=== PATIENT | male | born 2000 | race Asian ===

== ENCOUNTER 2022-09-05 17:09 | Observation (INO) ==
[2022-09-05] MEDS ORDERED: ONDANSETRON INJ 2 MG/ML 2 ML VIAL ONE ×2 (17:19→21:15)
[2022-09-05] MEDS ORDERED: SODIUM CHLORIDE 0.9% 500 ML IV STA (17:20)
[2022-09-05] MEDS ORDERED: ONDANSETRON INJ 2 MG/ML 2 ML VIAL IV STA (17:20)
[2022-09-05 17:55] LABS: Alanine Aminotransferase 38 U/L (7-52); Albumin Globulin Ratio 1.7 (0.9-2); Albumin Level 4.9 gm/dl (3.4-5.0); Alkaline Phosphatase 45 U/L (34-104); Anion Gap 6 (3-11); Aspartate Aminotransferase 19 U/L (13-39); BUN Creatinine Ratio 14.7 (10-20); Basophils # (auto) 0.03 K/uL (0-0.2); Basophils % (auto) 0.2 %; Blood Urea Nitrogen 15 mg/dl (6-23); Carbon Dioxide 30 mmol/L (21-32); Chloride 102 mmol/L (98-107); Eosinophils # (auto) 0.08 K/uL (0-0.50); Eosinophils % (auto) 0.6 %; Est GFR (African American) 122.1 ml/min; Est GFR (Non-African American) 105.3 ml/min; Globulin 2.9 gm/dl (2.5-4.0); Glucose 108 mg/dl (70-99(Fasting)); Hematocrit (blood only) 47.3 % (42.0-52.0); Hemoglobin 16.5 g/dl (14.0-18.0); Immature Granulocytes # (auto) 0.04 K/uL (0.01-0.20); Immature Granulocytes % (auto) 0.3 %; Lipase 14 U/L (11-82); Lymphocytes # (auto) 2.52 K/uL (1.2-3.4); Lymphocytes % (auto) 19.9 %; Mean Corpuscular Hemoglobin 27.5 pg (25.0-34.0); Mean Corpuscular Hgb Conc 34.9 g/dL (32.0-36.0); Mean Platelet Volume 9.5 fL (9.4-12.4); Monocytes # (auto) 0.76 K/uL (0.11-0.59); Neutrophils # (auto) 9.22 K/uL (1.40-6.50); Platelet Count 219 K/uL (130-400); Potassium 4.1 mmol/L (3.5-5.1); RDW Coefficient of Variation 12.7 % (11.5-14.5); RDW Standard Deviation 35.9 fL (36.4-46.3); Red Blood Count 5.99 M/uL (4.70-6.10); Sodium 138 mmol/L (136-145); Total Protein 7.8 gm/dl (6.0-8.3); White Blood Count 12.65 K/ul (4.8-10.8)
[2022-09-05] MEDS ORDERED: KETOROLAC TROMETHAMINE 15 MG/ML VIAL IV STA (18:14)
[2022-09-05] MEDS ORDERED: SODIUM CHLORIDE 0.9% 1000ML 500 ML IV ONE (18:14)
[2022-09-05] MEDS ORDERED: OPTIRAY 350 100ml IV ONE (19:16)
[2022-09-05] MEDS ORDERED: metroNIDAZOLE 500 MG/100 ML BAG IV STA (19:55)
[2022-09-05] MEDS ORDERED: cefTRIAXone SODIUM 1 GM ADDVIAL IV STA (19:55)
--- NOTE | 2022-09-05 19:55 | CT Scan Report ---
Exam(s): CT ABDOMEN + PELVIS With Contrast IV Amt: 84 m l optiray EXAM: CT Abdomen and Pelvis With Intravenous Contrast CLINICAL HISTORY: Reason for exam: rlq pain. TECHNIQUE: Axial computed tomography images of the abdomen and pelvis with intravenous contrast. CTDI is 6.03 mGy and DLP is 335.08 mGy-cm. Automated exposure control was utilized for the study. A dose lowering technique was utilized adhering to the principles of ALARA. CONTRAST: Patient received 84 m l optiray of IV contrast COMPARISON: No relevant prior studies available. FINDINGS: Lung bases: Unremarkable. No mass. No consolidation. ABDOMEN: Liver: Unremarkable. No mass. Gallbladder and bile ducts: Unremarkable. No calcified stones. No ductal dilation. Pancreas: Unremarkable. No mass. No ductal dilation. Spleen: Unremarkable. No splenomegaly. Adrenals: Unremarkable. No mass. Kidneys and ureters: Unremarkable. No solid mass. No hydronephrosis. Stomach and bowel: Mild wall thickening of the transverse colon, correlate for colitis versus under distention. PELVIS: Appendix: Positive for appendicitis, consisting of a distended appendix measuring up to 11 mm with wall thickening and mild periappendiceal fat stranding. No perforation or abscess. Bladder: Unremarkable. No mass. Reproductive: Unremarkable as visualized. ABDOMEN and PELVIS: Intraperitoneal space: Unremarkable. No free air. No significant fluid collection. Bones/joints: No acute fracture. No dislocation. Soft tissues: Unremarkable. Vasculature: Unremarkable. No abdominal aortic aneurysm. Lymph nodes: Unremarkable. No enlarged lymph nodes. IMPRESSION: Positive for appendicitis, consisting of a distended appendix measuring up to 11 mm with wall thickening and mild periappendiceal fat stranding. No perforation or abscess. Mild wall thickening of the transverse colon, correlate for colitis versus under distention. Communications: Verify Receipt Electronically signed by: Ousmane Majano MD 09/05/22 19:53 PM
[2022-09-05] MEDS ORDERED: cefTRIAXone SODIUM 1,000 MG Advantage IV ONE (20:00)
--- NOTE | 2022-09-05 20:40 | History & Physical Report ---
Date of Service September 05, 2022 Assessment & Plan (1) Appendicitis: Plan: Due to the patient's clinical presentation and findings on imaging we will admit him to the hospital proceeding as follows: Analgesia will be provided Antiemetics we provided N.p.o. status will be implemented IV fluids will be provided for hydration We will continue antibiotics. The treating emergency room physician has initiated Rocephin and Flagyl which we will continue A COVID test has been sent and we will follow for the results of this We have tentatively planned to perform an appendectomy with Dr. Sales. I have outlined the risks, benefits, and alternatives with the patient and he wishes to proceed. I have also outlined the expected postoperative course. We are currently working on arranging availability of overtime so the timing of surgery is yet to be determined Additional recommendations be forthcoming based on his clinical course as it unfolds, operative findings, and his postoperative recovery We will use SCDs for DVT prevention, no chemical means due to planned surgery The patient will be a level 1 full code History of Present Illness Chief Complaint: Abdominal pain Primary Care Provider: Rust This is a 22-year-old male who presented to the emergency department secondary to abdominal pain. Patient notes that he was in his usual state of health feeling fine until this afternoon when he developed some lower abdominal discomfort. He did have associated nausea and vomiting but denied any fevers, shakes, or chills. Since his pain began he denies any provocative factors. He does note the pain was palliated by medicines administered in the emergency department. He notes his last oral intake was approximately 2:30 PM today which was solid food. He denies any prior abdominal surgeries. Concerning past medical history he denies taking any medicines or having any medical problems Concerning past surgical history he denies previous surgeries He denies any medicine allergies Concerning social history he is a non-smoker Concerning family history there is no family history of coronary artery disease Since arrival to the emergency department the patient has had labs and imaging which I independent reviewed. CT scan abdomen pelvis showed that patient had a dilated and distended appendix measuring 11 mm with wall thickening and mild periappendiceal fat stranding. There is no evidence of perforation or abscess. There is also some mild wall thickening of the transverse colon which was felt to either represent colitis or under distention. Labs include a CBC were white blood cell count was elevated 12.6. Hemoglobin and hematocrit were both normal and patient's platelet count was normal. Chemistry profile showed sodium, potassium, BUN, and creatinine were normal. There is no elevation of patient's LFTs or lipase. A COVID test is pending. At the time of my interview the patient was resting comfortably in bed he was in no distress. Allergies Allergy/AdvReac Type Severity Reaction Status Date / Time No Known Allergies Allergy Unverified 09/05/22 20:25 Home Medications Medication Instructions Recorded Confirmed Type No Known Home Medications 09/05/22 09/05/22 History Past Med/Surg History Social History Smoking Status: Never smoker Preferred Language: Angolan Review of Systems Constitutional: no fever and no chills Ear, Nose, Mouth, Throat: no hearing loss Respiratory: no cough and no dyspnea Cardiovascular: no chest pain Gastrointestinal: as per Subjective / HPI Genitourinary: no dysuria Musculoskeletal: no back pain Integumentary: no rash Neurologic: no localized weakness Physical Exam Constitutional: WD/WN, vitals as above Eyes: no conjunctival abnormality ENMT: Ears: no hearing impairment and no external ear abnormality Mouth: no oropharynx abnormality Neck: trachea midline Respiratory: normal respiratory effort, lungs clear to auscultation Cardiovascular: Rate/Rhythm: regular rate, regular rhythm and + tachycardic Gastrointestinal (Abdomen): Abdomen is soft and nonrigid. It is nondistended. There is no rebound tenderness or guarding but patient did have pain with palpation in the lower quadrants (left lower quadrant and right lower quadrant) with deep palpation Musculoskeletal: No calf tenderness Skin: no rashes Neurologic: moves all extremities Psychiatric: A+Ox3, euthymic affect Results & Data Results & Data Vital Signs (Past 12 Hours) Vital Signs Temp Pulse Pulse Resp BP BP Pulse Ox 09/05/22 20:00 112 H 20 133/82 100 09/05/22 17:11 36.8 C 75 18 133/82 100 O2 Del Method 09/05/22 20:00 Room Air 09/05/22 17:11 Room Air Supervising Physician Co-Signing Physician Notes pnt s&e, agree with above. abd pain, worse in rlq. afvss. ttp at [facility] wbc 12. ct personally reviewed and interpreted, agree with non perforated appendicitis. plan for laparoscopic appendectomy risks reviewed to include bleeding, infection, open surgery, need for future surgery, damage to surrounding structures, abscess, and risks of anesthesia likely d/c tomorrow am pre op abx. PG Care Time/CCT Total # of Minutes Spent Total Time Spent with Patient: Total time spent is greater than 50% in coordination of care (as documented) at patient's floor/unit and/or counseling patient: Coding Level of Care Code 40551 INT INP/OBS CARE 75MIN Diagnoses Appendicitis K37
[2022-09-05] MEDS ORDERED: ACETAMINOPHEN 1,000 MG/100 ML VIAL IV PRN (20:41)
[2022-09-05] MEDS ORDERED: ONDANSETRON INJ 2 MG/ML 2 ML VIAL IV PRN ×2 (20:41→21:26)
[2022-09-05] MEDS ORDERED: MoRPHine SULFATE 4 MG/ML 1 ML CARP\\VIAL IV PRN (20:41)
[2022-09-05] MEDS ORDERED: SUCCINYLCHOLINE CHLORIDE 20 MG/ML 10 ML VIAL IV ONE (21:15)
[2022-09-05] MEDS ORDERED: DEXAMETHASONE SOD INJ 4 MG/ML VIAL ONE (21:15)
[2022-09-05] MEDS ORDERED: fentaNYL citrate PF 100 MCG/2 ML VIAL ONE ×2 (21:15→21:16)
[2022-09-05] MEDS ORDERED: PROPOFOL IV EMULSION 10 MG/ML 20 ML VIAL IV ONE (21:15)
[2022-09-05] MEDS ORDERED: LIDOCAINE 2% MPF LOCAL 5 ML VIAL ONE (21:15)
[2022-09-05] MEDS ORDERED: MIDAZOLAM HCL 1 MG/ML 2ML VIAL ONE (21:15)
[2022-09-05] MEDS ORDERED: ROCURONIUM BROMIDE 10 MG/ML 5 ML VIAL IV ONE (21:15)
[2022-09-05] MEDS ORDERED: BUPIVACAINE 0.5 % 5 MG/1 ML MPF 30ML VIAL ONE (21:20)
[2022-09-05] MEDS ORDERED: PROMETHAZINE HCL 6.25 MG in SODIUM CHLORIDE 0.9% 50 ML IV PRN (21:26)
[2022-09-05] MEDS ORDERED: HYDROmorphone INJ 1 MG/ML SYRINGE IV PRN (21:26)
[2022-09-05] MEDS ORDERED: ATROPINE SULFATE 0.1 MG/ML 10ML SYR IV PRN (21:26)
[2022-09-05] MEDS ORDERED: ePHEDrine sulfate 50 MG/ML AMP IV PRN (21:26)
[2022-09-05] MEDS ORDERED: ACETAMINOPHEN 1,000 MG/100 ML VIAL IV STA (21:26)
[2022-09-05] MEDS ORDERED: fentaNYL citrate PF 100 MCG/2 ML VIAL IV PRN (21:26)
--- NOTE | 2022-09-05 21:32 | Anesthesiology Consultation ---
Date of Service September 05, 2022 Assessment & Plan (1) Encounter for pre-operative examination: Chart Review Chart Review: Acceptable Risk for Surgery and Patient NOT seen in Pre Admission Testing Consults Requested none History Surgery Operation Date: 09/05/22 20:55 Proposed Procedures p Laparoscopic Appendectomy, possible open - Nico Sales, , FACS Height/Weight Weight: 73.5 kg Allergies Allergy/AdvReac Type Severity Reaction Status Date / Time No Known Allergies Allergy Unverified 09/05/22 20:25 Medications Home Medications Medication Instructions Recorded Confirmed Last Taken No Known Home Medications 09/05/22 09/05/22 Unknown Past Medical History healthy Exercise / Class Metabolic Activity II 4-5 Yardwork/Stairs/Walk up hill Past Surgical History no prior surgeries Past Anesthesia History No Hx of Anesthesia Complications and No Family Hx of Anesthesia Complications History of PONV No Hx of PONV and No Hx of Motion Sickness Social History Smoking Status: Never smoker Physical Exam Vital Signs Last Vital Signs Temp 36.8 C 09/05/22 17:11 Pulse 112 H 09/05/22 20:00 Resp 20 09/05/22 20:00 BP 133/82 09/05/22 20:00 Pulse Ox 100 09/05/22 20:00 O2 Del Method Room Air 09/05/22 20:00 Testing Laboratory Results 09/05/22 17:17 09/05/22 17:17
[2022-09-05] MEDS ORDERED: GLYCOPYRROLATE 0.2 MG/ML VIAL ONE (22:26)
[2022-09-05] MEDS ORDERED: NEOSTIGMINE METHYLSULFATE 1 MG/ML 10ML VIAL ONE (22:26)
--- NOTE | 2022-09-05 22:42 | Operative Report ---
PG Post Operative Report Pre & Post Diagnosis Operation Date: 09/05/22 20:55 Pre-Op Diagnosis: Acute appendicitis Post-Op Diagnosis: Acute appendicitis I identified the patient and participated in the time-out.: Yes Procedure Operation Date: 09/05/22 20:55 Actual Procedures p Laparoscopic Appendectomy, possible open - Nico Sales DO, FACS Surgeon Nico Sales DO, FACS Bulk Filler Joshua Barber Estimated Blood Loss 5 Findings Consistent with Post-Op Diagnosis Nonperforated acute appendicitis Specimens Appendix Anesthesia Type General Complications none Disposition Accompanied Patient To Recovery: No Disposition: Recovery Room Indications 22-year-old male presented with signs symptoms of acute appendicitis confirmed by CT. Plan for laparoscopic appendectomy. The risks of the procedure were discussed, all questions were answered, and the patient agreed to proceed with surgery as planned. Description of Procedure The patient was properly identified, consented, and taken to the operating room where he was placed in the supine position. General endotracheal anesthesia was induced. SCDs and a safety belt were placed. Preoperative antibiotics were administered. A Patel catheter was not placed. The patient's abdomen was prepped and draped in the standard sterile fashion. Surgical timeout was performed and all parties were in agreement that this was the correct patient and procedure to be performed and we continued as planned. A curvilinear infraumbilical incision was made with electrocautery and deepened down to the fascia with blunt dissection. The base of the umbilicus was grasped with a Michelle and elevated towards the ceiling. An incision was made in the midline fascia with a knife and entry into the peritoneum was confirmed. Stay suture of 0 Vicryl was placed and a Brenner trocar was inserted. The abdomen was insufflated with carbon dioxide which the patient tolerated without incident. The laparoscope was inserted and no damage from initial trocar placement was noted, no gross abnormalities were noted within the 4 quadrants the abdomen. 5 mm ports were then placed in the left lower quadrant with care not to damage the epigastric vessels, and in the suprapubic midline with care not to damage the bladder. The patient was placed in Trendelenburg position and rotated towards the left. The small bowel was swept away from the right lower quadrant. The cecum was grasped with an atraumatic grasper exposing the appendix. The appendix was moderately inflamed and there was no evidence of perforation. There was minimal fluid in the pelvis. A window was created between the base of the appendix and the mesoappendix. A washington loaded endoscopic stapler was then used to divide the appendix at its base. A washington load was then used to divide the mesoappendix. Hemostasis was good. The appendix was placed in an Endo Catch bag and removed through the umbilical port site. The right lower quadrant and pelvis was irrigated and hemostasis was found to be good. 5 mm trochars were removed under direct visualization and the abdomen was allowed to collapse. The umbilical port site fascia was closed with 0 Vicryl suture. The wound was irrigated, and the skin of all ports was closed with 4-0 Monocryl subcuticular sutures. Dermabond was placed over the wounds. The patient was extubated in the operating room and taken to the PACU where he recovered without apparent incident. All sponge, instrument and needle counts were correct at the conclusion of the procedure. The patient tolerated the procedure well. The physician's special education assistant was present and scrubbed for the entire the case. He is critical in positioning the patient, prepping and draping, retraction and exposure, driving the laparoscope, removal of the appendix, closure the incisions, placement of the dressings. I attest to the content of the Intraoperative Record and any orders documented therein. Any exceptions are noted below.
--- NOTE | 2022-09-05 23:19 | Anesthesiology Progress Note ---
Date of Service September 05, 2022 Anesthesia Post Procedure Vital Signs Vital Signs: Temp Pulse Pulse Resp BP BP BP 09/05/22 23:10 71 22 118/78 09/05/22 23:00 36.5 C 81 20 117/76 09/05/22 20:00 112 H 20 133/82 09/05/22 17:11 36.8 C 75 18 133/82 Pulse Ox O2 Del Method O2 Flow Rate 09/05/22 23:10 100 Oxymask 5 09/05/22 23:00 100 Oxymask 10 09/05/22 20:00 100 Room Air 09/05/22 17:11 100 Room Air Pain Intensity Abdomen: Pain Intensity: 0 Transfer of Care Handoff Completed per policy Notes Mental Status: alert / awake / arousable and participated in evaluation Patient Amnestic to Procedure: Yes Nausea / Vomiting: adequately controlled Pain: adequately controlled Airway Patency, RR, SpO2: stable & adequate BP & HR: stable & adequate Hydration State: stable & adequate Anesthetic Complications: no major complications apparent and Pt Satisfied with anesthetic care
--- NOTE | 2022-09-06 00:14 | Emergency Department Note ---
History of Present Illness General Chief Complaint: Abdominal Pain Stated Complaint: ABDOMINAL PAIN Time Seen by Provider: 09/05/22 17:59 History of Present Illness Provider Complaint: abdominal pain Onset (ago): 5 hour(s) Pain Consistency: constant Location: diffuse Severity: moderate Maximum Pain Intensity: 6 Current Pain Intensity: 6 Quality: + stabbing, + aching, + sharp and + dull Relieved By: + nothing Exacerbated By: + nothing Context: no foreign travel, no possible food poisoning, no sick contacts, no recent antibiotic use, no recent surgery/procedure or no recent injury Associated Symptoms: + nausea and + vomiting; no fever, no chills, no constipation, no dysuria, no hematemesis, no hematochezia, no melena, no hematuria, no syncope, no headache, no chest pain and no breathing difficulty Home Medications Medication Instructions Recorded Confirmed Type No Known Home Medications 09/05/22 09/05/22 History Allergies Allergy/AdvReac Type Severity Reaction Status Date / Time No Known Allergies Allergy Unverified 09/05/22 20:25 Past Med/Surg History Medical History No pertinent family history No pertinent past medical history Surgical History No pertinent past surgical history Social History Smoking Status: Never smoker Preferred Language: Latvian Physical Exam Vital Signs: Vital Signs - 24 hr 09/05/22 17:11 09/05/22 20:00 09/05/22 23:00 Temperature 36.8 C 36.5 C Temperature Source Temporal Artery Sc an Oral Pulse Rate 75 Pulse Rate [Apical ] 112 H 81 Pulse Rhythm [Apic al] Regular Pulse Strength [Ap ical] Normal Respiratory Rate 18 20 20 Respiratory Effort / Characteristics Non-Labored Non-Labored Respiratory Depth Normal Normal Respiratory Patter n Regular Blood Pressure 133/82 Blood Pressure [Le ft Arm] 117/76 Blood Pressure [Ri ght Arm] 133/82 Blood Pressure Arely n 99 Blood Pressure Arely n [Left Arm] 89 Blood Pressure Arely n [Right Arm] 99 Blood Pressure Pos ition Sitting Blood Pressure Pos ition [Left Arm] Lying Blood Pressure Pos ition [Right Arm] Lying Pulse Oximetry 100 100 100 Oxygen Delivery Me thod Room Air Room Air Oxymask Oxygen Flow Rate 10 Sepsis Recent Feve r Within 48 Hours No Sepsis New/Unexpla ined Change in Men vitaly Status No Sepsis Action Take n by Nursing No Action Required 09/05/22 23:10 09/05/22 23:20 09/05/22 23:30 Temperature Temperature Source Pulse Rate Pulse Rate [Apical ] 71 74 74 Pulse Rhythm [Apic al] Pulse Strength [Ap ical] Respiratory Rate 22 24 22 Respiratory Effort / Characteristics Non-Labored Non-Labored Non-Labored Respiratory Depth Normal Normal Normal Respiratory Patter n Regular Regular Regular Blood Pressure Blood Pressure [Le ft Arm] 118/78 116/73 113/85 Blood Pressure [Ri ght Arm] Blood Pressure Arely n Blood Pressure Arely n [Left Arm] 91 87 94 Blood Pressure Arely n [Right Arm] Blood Pressure Pos ition Blood Pressure Pos ition [Left Arm] Blood Pressure Pos ition [Right Arm] Pulse Oximetry 100 99 99 Oxygen Delivery Me thod Oxymask Room Air Room Air Oxygen Flow Rate 5 Sepsis Recent Feve r Within 48 Hours Sepsis New/Unexpla ined Change in Men vitaly Status Sepsis Action Take n by Nursing 09/05/22 23:40 09/05/22 23:51 Temperature Temperature Source Pulse Rate Pulse Rate [Apical ] 77 80 Pulse Rhythm [Apic al] Pulse Strength [Ap ical] Respiratory Rate 24 22 Respiratory Effort / Characteristics Non-Labored Non-Labored Respiratory Depth Normal Normal Respiratory Patter n Regular Regular Blood Pressure Blood Pressure [Le ft Arm] 114/81 114/77 Blood Pressure [Ri ght Arm] Blood Pressure Arely n Blood Pressure Arely n [Left Arm] 92 89 Blood Pressure Arely n [Right Arm] Blood Pressure Pos ition Blood Pressure Pos ition [Left Arm] Blood Pressure Pos ition [Right Arm] Pulse Oximetry 99 99 Oxygen Delivery Me thod Room Air Room Air Oxygen Flow Rate Sepsis Recent Feve r Within 48 Hours Sepsis New/Unexpla ined Change in Men vitaly Status Sepsis Action Take n by Nursing Physical Exam: Physical Exam GENERAL: He is oriented to person, place, and time. He appears well-developed and well-nourished. He does not appear distressed. CV: Normal rate, regular rhythm, normal heart sounds and intact distal pulses. There is no peripheral edema. Palpable radial pulses bue. PULM/CHEST: Effort normal and breath sounds normal. No respiratory distress. No stridor. He has no wheezes. He has no rales. - Chest Wall: He exhibits no tenderness. ABD: The abdomen is soft. He has no distension. No mass is present. There is tenderness to palpation of the right lower quadrant. There is no rebound, no guarding, no Cooney's sign. MUSC/SKEL: Normal range of motion. There is no peripheral edema, tenderness or deformity. LYMPH: No cervical adenopathy. NEURO: Motor and sensation grossly intact. SKIN: Skin is warm and dry. He is not diaphoretic. PSYCH: He has a normal mood and affect. Behavior is normal. Judgment and thought content normal. Course Course 1758: The patient was evaluated in room B10. A complete history and physical exam was performed Cardiac monitoring: An order was placed for continuous cardiac monitoring. The monitor shows a rate of 80 with sinus rhythm interpreted by wv 2000: Vital signs stable. Imaging shows appendicitis. Patient be treated with antibiotics and general surgery will be contacted for evaluation. Administered Medications Ondansetron HCl (Ondansetron Inj 2 Mg/Ml 2 Ml Vial) 4 mg IV ONCE PRN PRN Reason: PACU Use Only-Nausea/Vomiting Stop: 09/06/22 05:26 Last Admin: 09/05/22 23:41 Dose: 4 mg Documented By: [facility] Discontinued Medications Bupivacaine HCl (Bupivacaine 0.5 % 5 Mg/1 Ml Mpf 30ml Vial) Confirm Administered Dose 30 ml .ROUTE .STK-MED ONE Stop: 09/05/22 21:21 Last Admin: 09/05/22 22:31 Dose: 30 ml Documented By: JESSEE Sodium Chloride (Nss) 500 mls @ 999 mls/hr IV .Q31M STA Stop: 09/05/22 17:50 Last Infusion: 09/05/22 19:16 Dose: 0 mls/hr Documented By: Admin: 09/05/22 17:22 Dose: 999 mls/hr Documented By: VILMA Sodium Chloride (Nss 1000ml) 500 mls @ 999 mls/hr IV .Q31M ONE Stop: 09/05/22 18:44 Last Infusion: 09/05/22 19:15 Dose: 0 mls/hr Documented By: Admin: 09/05/22 18:33 Dose: 999 mls/hr Documented By: RSL Metronidazole (Flagyl) 500 mg in 100 mls @ 100 mls/hr IV NOW STA Stop: 09/05/22 20:54 Last Admin: 09/05/22 21:10 Dose: 100 mls/hr Documented By: AQUILES Ceftriaxone Sodium 1,000 mg/ (Dextrose) 50 mls @ 100 mls/hr IV NOW ONE Stop: 09/05/22 20:29 Last Infusion: 09/05/22 20:54 Dose: 0 mls/hr Documented By: Admin: 09/05/22 20:25 Dose: 100 mls/hr Documented By: DEVEN Acetaminophen (Ofirmev) 1,000 mg in 100 mls @ 400 mls/hr IV NOW STA Stop: 09/05/22 21:40 Last Admin: 09/05/22 23:41 Dose: 400 mls/hr Documented By: NATACHA Ioversol (Optiray 350 100ml) 84 ml IV ONCE ONE Stop: 09/05/22 19:17 Last Admin: 09/05/22 19:17 Dose: 84 ml Documented By: YESSI Ketorolac Tromethamine (Ketorolac Tromethamine 15 Mg/Ml Vial) 15 mg IV NOW STA Stop: 09/05/22 18:15 Last Admin: 09/05/22 18:33 Dose: 15 mg Documented By: AQUILES Ondansetron HCl (Ondansetron Inj 2 Mg/Ml 2 Ml Vial) Confirm Administered Dose 4 mg .ROUTE .STK-MED ONE Stop: 09/05/22 17:20 Last Admin: 09/05/22 17:22 Dose: Not Given Documented By: VILMA Ondansetron HCl (Ondansetron Inj 2 Mg/Ml 2 Ml Vial) 4 mg IV NOW STA Stop: 09/05/22 17:21 Last Admin: 09/05/22 17:22 Dose: 4 mg Documented By: VILMA Medical Decision Making Laboratory Data Attestation: I reviewed the patient's lab results. 09/05/22 17:17 09/05/22 17:17 Lab Results 09/05/22 09/05/22 09/05/22 Range/Units 17:17 17:17 20:05 WBC 12.65 H (4.8-10.8) K/ul RBC 5.99 (4.70-6.10) M/uL Hgb 16.5 (14.0-18.0) g/dl Hct 47.3 (42.0-52.0) % MCV 79.0 L (80.0-100.0) fL MCH 27.5 (25.0-34.0) pg MCHC 34.9 (32.0-36.0) g/dL RDW Std Deviation 35.9 L (36.4-46.3) fL RDW Coeff of Twin 12.7 (11.5-14.5) % Plt Count 219 (130-400) K/uL MPV 9.5 (9.4-12.4) fL Immature Gran % (Auto) 0.3 % Neut % (Auto) 73.0 % Lymph % (Auto) 19.9 % [place] % (Auto) 6.0 % Eos % (Auto) 0.6 % Baso % (Auto) 0.2 % Neut # (Auto) 9.22 H (1.40-6.50) K/uL Lymph # (Auto) 2.52 (1.2-3.4) K/uL [place] # (Auto) 0.76 H (0.11-0.59) K/uL Eos # (Auto) 0.08 (0-0.50) K/uL Baso # (Auto) 0.03 (0-0.2) K/uL Immature Gran # (Auto) 0.04 (0.01-0.20) K/uL Sodium 138 (136-145) mmol/L Potassium 4.1 (3.5-5.1) mmol/L Chloride 102 (98-107) mmol/L Carbon Dioxide 30 (21-32) mmol/L Anion Gap 6 (3-11) BUN 15 (6-23) mg/dl Creatinine 1.02 (0.6-1.4) mg/dl Est Cr Clr Drug Dosing Not Reportable Est GFR ( Amer) 122.1 ml/min Est GFR (Non-Af Amer) 105.3 ml/min BUN/Creatinine Ratio 14.7 (10-20) Glucose 108 H (70-99(Fasting)) mg/dl Calcium 10.0 (8.6-10.3) mg/dl Total Bilirubin 1.0 (0.2-1.0) mg/dl AST 19 (13-39) U/L ALT 38 (7-52) U/L Alkaline Phosphatase 45 (34-104) U/L Total Protein 7.8 (6.0-8.3) gm/dl Albumin 4.9 (3.4-5.0) gm/dl Globulin 2.9 (2.5-4.0) gm/dl Albumin/Globulin Ratio 1.7 (0.9-2) Lipase 14 (11-82) U/L Urine Color Urine Appearance Urine pH Ur Specific [place] Urine Protein Urine Glucose (UA) Urine Ketones Urine Blood Urine Nitrite Urine Bilirubin Urine Urobilinogen Ur Leukocyte Esterase Urine WBC (Auto) Urine RBC (Auto) U Hyaline Cast (Auto) U Epithel Cells (Auto) Urine Bacteria (Auto) Ur Renal Epithelial Cell Urine Crystals Calcium Oxalate Crystal Uric Acid Crystals Triple Phos Crystals Other Crystals Amorphous Sediment Granular Casts Waxy Casts RBC Casts WBC Casts Other Casts Urine Mucus Urine Other Urine Trichomonas Urine Yeast Urine Sperm Ur Oval Fat Bodies SARS-CoV-2, RNA, NAAT NEGATIVE (NEGATIVE) 09/05/22 Range/Units 20:29 WBC (4.8-10.8) K/ul RBC (4.70-6.10) M/uL Hgb (14.0-18.0) g/dl Hct (42.0-52.0) % MCV (80.0-100.0) fL MCH (25.0-34.0) pg MCHC (32.0-36.0) g/dL RDW Std Deviation (36.4-46.3) fL RDW Coeff of Twin (11.5-14.5) % Plt Count (130-400) K/uL MPV (9.4-12.4) fL Immature Gran % (Auto) % Neut % (Auto) % Lymph % (Auto) % [place] % (Auto) % Eos % (Auto) % Baso % (Auto) % Neut # (Auto) (1.40-6.50) K/uL Lymph # (Auto) (1.2-3.4) K/uL [place] # (Auto) (0.11-0.59) K/uL Eos # (Auto) (0-0.50) K/uL Baso # (Auto) (0-0.2) K/uL Immature Gran # (Auto) (0.01-0.20) K/uL Sodium (136-145) mmol/L Potassium (3.5-5.1) mmol/L Chloride (98-107) mmol/L Carbon Dioxide (21-32) mmol/L Anion Gap (3-11) BUN (6-23) mg/dl Creatinine (0.6-1.4) mg/dl Est Cr Clr Drug Dosing Est GFR ( Amer) ml/min Est GFR (Non-Af Amer) ml/min BUN/Creatinine Ratio (10-20) Glucose (70-99(Fasting)) mg/dl Calcium (8.6-10.3) mg/dl Total Bilirubin (0.2-1.0) mg/dl AST (13-39) U/L ALT (7-52) U/L Alkaline Phosphatase (34-104) U/L Total Protein (6.0-8.3) gm/dl Albumin (3.4-5.0) gm/dl Globulin (2.5-4.0) gm/dl Albumin/Globulin Ratio (0.9-2) Lipase (11-82) U/L Urine Color Cancelled Urine Appearance Cancelled Urine pH Cancelled Ur Specific [place] Cancelled Urine Protein Cancelled Urine Glucose (UA) Cancelled Urine Ketones Cancelled Urine Blood Cancelled Urine Nitrite Cancelled Urine Bilirubin Cancelled Urine Urobilinogen Cancelled Ur Leukocyte Esterase Cancelled Urine WBC (Auto) Cancelled Urine RBC (Auto) Cancelled U Hyaline Cast (Auto) Cancelled U Epithel Cells (Auto) Cancelled Urine Bacteria (Auto) Cancelled Ur Renal Epithelial Cell Cancelled Urine Crystals Cancelled Calcium Oxalate Crystal Cancelled Uric Acid Crystals Cancelled Triple Phos Crystals Cancelled Other Crystals Cancelled Amorphous Sediment Cancelled Granular Casts Cancelled Waxy Casts Cancelled RBC Casts Cancelled WBC Casts Cancelled Other Casts Cancelled Urine Mucus Cancelled Urine Other Cancelled Urine Trichomonas Cancelled Urine Yeast Cancelled Urine Sperm Cancelled Ur Oval Fat Bodies Cancelled SARS-CoV-2, RNA, NAAT (NEGATIVE) Imaging Data Radiologist's Impression: Abdomen/Pelvis CT 09/05/22 18:14 CR Exam(s): CT ABDOMEN + PELVIS With Contrast IV Amt: 84 m l optiray EXAM: CT Abdomen and Pelvis With Intravenous Contrast CLINICAL HISTORY: Reason for exam: rlq pain. TECHNIQUE: Axial computed tomography images of the abdomen and pelvis with intravenous contrast. CTDI is 6.03 mGy and DLP is 335.08 mGy-cm. Automated exposure control was utilized for the study. A dose lowering technique was utilized adhering to the principles of ALARA. CONTRAST: Patient received 84 m l optiray of IV contrast COMPARISON: No relevant prior studies available. FINDINGS: Lung bases: Unremarkable. No mass. No consolidation. ABDOMEN: Liver: Unremarkable. No mass. Gallbladder and bile ducts: Unremarkable. No calcified stones. No ductal dilation. Pancreas: Unremarkable. No mass. No ductal dilation. Spleen: Unremarkable. No splenomegaly. Adrenals: Unremarkable. No mass. Kidneys and ureters: Unremarkable. No solid mass. No hydronephrosis. Stomach and bowel: Mild wall thickening of the transverse colon, correlate for colitis versus under distention. PELVIS: Appendix: Positive for appendicitis, consisting of a distended appendix measuring up to 11 mm with wall thickening and mild periappendiceal fat stranding. No perforation or abscess. Bladder: Unremarkable. No mass. Reproductive: Unremarkable as visualized. ABDOMEN and PELVIS: Intraperitoneal space: Unremarkable. No free air. No significant fluid collection. Bones/joints: No acute fracture. No dislocation. Soft tissues: Unremarkable. Vasculature: Unremarkable. No abdominal aortic aneurysm. Lymph nodes: Unremarkable. No enlarged lymph nodes. IMPRESSION: Positive for appendicitis, consisting of a distended appendix measuring up to 11 mm with wall thickening and mild periappendiceal fat stranding. No perforation or abscess. Mild wall thickening of the transverse colon, correlate for colitis versus under distention. Communications: Verify Receipt Electronically signed by: Ousmane Majano MD 09/05/22 19:53 PM [facility] Narrative 1759: The patient was evaluated in room B10. A complete history and physical exam was performed Cardiac monitoring: An order was placed for continuous cardiac monitoring. The monitor shows a rate of 80 with sinus rhythm interpreted by me 2000: Vital signs stable. Imaging shows appendicitis. Patient be treated with antibiotics and general surgery will be contacted for evaluation. Impression & Plan Appendicitis Discharge Plan Visit Data Chief Complaint: Abdominal Pain Stated Complaint: ABDOMINAL PAIN ED Provider: Lawson Coombs Discharge Problem: Appendicitis Patient Disposition: Admitted As Inpatient Condition: Good Discharge Instructions Interventions: ED Discharge Assessment Last Done: 09/05/22 21:19
[2022-09-06] MEDS: LACTATED RINGER'S 1,000 ML IV SCH ×2 (00:34→08:08)
[2022-09-06] MEDS ORDERED: oxyCODONE HCL IR 5 MG TAB (IMMEDIATE RELEASE) PO PRN ×2 (07:59)
[2022-09-06 08:26] LABS: Appearance Urine Clear (Clear); Bilirubin Urine Negative (Negative); Blood Urine Negative (Negative); Color Urine Yellow; Glucose Urine UA Negative (Negative); Ketones Urine 2+ (Negative); Leukocyte Esterase Urine Negative (Negative); Nitrite Urine Negative (Negative); Protein Urine Negative (Negative); Specific Gravity Urine 1.017 (1.000-1.030); Urobilinogen Urine Negative (Negative)
--- NOTE | 2022-09-06 09:47 | Surgery Progress Note ---
Date of Service September 06, 2022 Assessment & Plan (1) Appendicitis: Plan: POD#1 lap appendectomy vitals stable. patient overall feeling well diet as tolerates. po pain control incisions c/d/i dispo instructions reviewed, f/u in clinic with Dr. Sales within 2 weeks Admission and Anticipated Discharge Date Admission Date: September 05, 2022 Supervising Physician Co-Signing Physician Notes pnt S&E, agree with above. POD#1 lap appendectomy, doing well. incisions without infection. d/c to home, f/u in 2 weeks. wound care instructions, activity restrictions, and return precautions given. Subjective Patient is doing well. Some expected soreness post op, but the pain is different and better than when he came in. Tolerating diet without nausea/vomiting. Voiding. Physical Exam Physical Exam: awake/alert, no distress Respiratory: normal respiratory effort Gastrointestinal (Abdomen): Inspection/Auscultation: + abdominal surgical incision (c/d/i with skin glue); abdomen not distended Percussion/Palpation: + abdomen tender (expected post op incisional discomfort) and abdomen soft Results & Data Vital Signs (Past 12 Hours) Vital Signs Temp Pulse Pulse Resp BP Pulse Ox O2 Del Method 09/06/22 07:16 36.6 C 92 H 16 115/69 97 Room Air 09/06/22 02:46 36.7 C 93 H 14 114/75 99 Room Air 09/06/22 01:45 36.8 C 105 H 16 119/79 98 Room Air 09/06/22 00:40 36.4 C L 89 18 126/84 98 Room Air 09/06/22 00:21 36.7 C 93 H 15 113/76 100 Room Air 09/05/22 23:51 80 22 114/77 99 Room Air 09/05/22 23:40 77 24 114/81 99 Room Air 09/05/22 23:30 74 22 113/85 99 Room Air 09/05/22 23:20 74 24 116/73 99 Room Air 09/05/22 23:10 71 22 118/78 100 Oxymask 09/05/22 23:00 36.5 C 81 20 117/76 100 Oxymask O2 Flow Rate 09/06/22 07:16 09/06/22 02:46 09/06/22 01:45 09/06/22 00:40 09/06/22 00:21 09/05/22 23:51 09/05/22 23:40 09/05/22 23:30 09/05/22 23:20 09/05/22 23:10 5 09/05/22 23:00 10 PG Care Time/CCT Total # of Minutes Spent Total Time Spent with Patient: Total time spent is greater than 50% in coordination of care (as documented) at patient's floor/unit and/or counseling patient: Coding Level of Care Code 37644 Post Operative Follow-Up Diagnoses Appendicitis K35.80 Acute appendicitis type: unspecified acute appendicitis type Appendicitis type: acute appendicitis (1) Appendicitis Acute appendicitis type: unspecified acute appendicitis type Appendicitis type: acute appendicitis Qualified Code(s): K35.80 - Unspecified acute appendicitis
--- NOTE | 2022-09-10 11:19 | Discharge Summary ---
Date of Service September 06, 2022 Admission HPI Per Admitting Provider This is a 22-year-old male who presented to the emergency department secondary to abdominal pain. Patient notes that he was in his usual state of health feeling fine until this afternoon when he developed some lower abdominal discomfort. He did have associated nausea and vomiting but denied any fevers, shakes, or chills. Since his pain began he denies any provocative factors. He does note the pain was palliated by medicines administered in the emergency department. He notes his last oral intake was approximately 2:30 PM today which was solid food. He denies any prior abdominal surgeries. Concerning past medical history he denies taking any medicines or having any medical problems Concerning past surgical history he denies previous surgeries He denies any medicine allergies Concerning social history he is a non-smoker Concerning family history there is no family history of coronary artery disease Since arrival to the emergency department the patient has had labs and imaging which I independent reviewed. CT scan abdomen pelvis showed that patient had a dilated and distended appendix measuring 11 mm with wall thickening and mild periappendiceal fat stranding. There is no evidence of perforation or abscess. There is also some mild wall thickening of the transverse colon which was felt to either represent colitis or under distention. Labs include a CBC were white blood cell count was elevated 12.6. Hemoglobin and hematocrit were both normal and patient's platelet count was normal. Chemistry profile showed sodium, potassium, BUN, and creatinine were normal. There is no elevation of patient's LFTs or lipase. A COVID test is pending. At the time of my interview the patient was resting comfortably in bed he was in no distress. Principal Diagnosis acute appendicitis Discharge Exam awake, alert, no distress Respiratory normal respiratory effort Gastrointestinal (Abdomen) Inspection/Auscultation: + abdominal surgical incision (c/d/i with dermabond, no signs of infection) Percussion/Palpation: + abdomen tender (mild larissa incisional discomfort to palpation) and abdomen soft Discharge Data Allergies Allergy/AdvReac Type Severity Reaction Status Date / Time No Known Allergies Allergy Unverified 09/05/22 20:25 Consultations 09/05/22 19:56 ED Decision to Admit Stat Procedures Performed Operation Date: 09/05/22 20:55 Actual Procedures p Laparoscopic Appendectomy(Not Applicable) - Nico Sales DO, FACS Ordered Studies 09/05/22 18:14 CT abd pelvis IV con only Stat Hospital Course (1) Appendicitis: This is a 22yM who presented to the [facility] ED on 09/05/22 with abdominal pain. Workup in the ED showed a WBC of 12.[address] a/p concerning for acute appendicitis. The patient was tender to palpation in the RLQ. Patient made NPO with IVF and booked for the OR. On 09/05 the patient went to the OR with Dr. Sales for a laparoscopic appendectomy. The patient tolerated the procedure well, see operative report for full details. Post operatively the patient's diet was advanced, pain managed on prn meds, and incisions clean/dry/intact. On POD#1 the patient was deemed stable for discharge to home. Total Time Total Time Spent Total Time Spent (In Minutes): 10 Discharge Plan Discharge Items Patient Disposition: Home - Self-Care Reason For Visit: APPY Discharge Diagnosis: Appendicitis Condition on Discharge: Good Activity: As commented below Activity Comment: Walk daily. Avoid strenuous activity. Lifting: No more than 10 pounds Bathing: May shower/bathe in 3 days Exercise/Sports: Wait until after follow-up appointment Driving/Machine Use: no driving while taking narcotics for pain Non-emergency contact: Surgeon Call non-emergency contact if: you have any medication questions Follow-up/Referrals: Nico Sales DO, FACS [Physician] - 09/19/22 9:00 am (Call office for an appointment in 1-2 weeks.) [facility] [Primary Care Provider] - Diet: Regular Addtl Attending Provider Instructions: Call office with any questions If you are not requiring the narcotic Percocet for pain you may take plain Tylenol. Do not take them together as they both contain Acetaminophen and you should not exceed >3grams of Acetaminophen within a 24 hour time period. You may purchase Ibuprofen over the counter if needed for additional pain control. Take with food. Take per manufacturers instructions Pending Studies at Discharge: No Stand-Alone Forms: [employer], Pain - Opioid Pain Management, Work/School Release Medications and DC Order Prescriptions: New oxycodone 5 mg tablet 5 - 10 mg PO .[id number] PRN (Reason: pain, for initial therapy, max 6 tabs per day) Qty: 12 0RF Discharge Orders: Discharge Order (Routine); Ordered 09/06/22 Ordered By: Arely Maki Admission Data Admit Date/Time: 09/05/22 22:42 Attending Provider: Nico Sales Admit Provider: Nico Sales Primary Care Provider: [facility] Other Providers: Nico Sales Other Interventions: Discharge Summary Assessment (RN) Last Done: 09/06/22 09:50 Coding Level of Care Code 03706 IN/OBS DISCH 30 MIN/LESS Diagnoses Appendicitis K35.80 Acute appendicitis type: unspecified acute appendicitis type Appendicitis type: acute appendicitis
== END 2022-09-06 11:00 | disposition home or self-care (01) ==
LOC: ED 17:09 → OR 21:19 → 3E 21:19 → OR 21:41